=== PATIENT | female | born 1955 | race Caucasian/White ===

== ENCOUNTER 2022-12-17 08:27 | Inpatient (IN) | payer MEDICARE, OTHER ==
[~2022-12-17] VITALS: Ht 179.3 cm; Wt 73.0 kg
[2022-12-17 09:21] LABS: Nucleated Red Blood Cells % 0.4 %; Red Cell Distribution Width 17.9 % (11.8-14.3)
[2022-12-17 09:23] LABS: Basophils # (auto) 0.1 10 ^3/uL (0-0.2); Basophils % (auto) 0.9 % (0.0-2.0); Eosinophils # (auto) 0.2 10 ^3/uL (0-0.8); Eosinophils % (auto) 2.5 % (0.0-7.0); Hematocrit 43.8 % (36.0-46.0); Hemoglobin 14.5 g/dL (12.2-16.2); Lymphocytes # (auto) 1.7 10 ^3/uL (0.4-5.4); Lymphocytes % (auto) 19.9 % (10.0-50.0); Mean Corpuscular Hemoglobin 28.7 pg (28.0-32.0); Monocytes # (auto) 0.5 10 ^3/uL (0-1.3); Monocytes % (auto) 6.4 % (0.0-12.0); Neutrophils % (auto) 70.3 % (37.0-80.0); Red Blood Cells 5.03 10^6/uL (4.0-5.20); White Blood Cell 8.5 10^3/uL (4.4-10.8)
[2022-12-17 10:18] LABS: Albumin 3.2 g/dL (3.4-5.0); BUN/Creatinine Ratio 14.3; Calcium 9.3 mg/dL (8.5-10.1); Potassium 4.9 mmol/L (3.5-5.1)
[2022-12-17 10:18] LABS: Urine Bacteria FEW /hpf (None Seen); Urine Blood Negative /uL (Negative); Urine Hyaline Cast FEW /lpf (0 - 2); Urine Mucus FEW (None Seen); Urine Specific Gravity 1.017 (1.001-1.035); Urine WBC 34 /hpf (0 - 5)
[2022-12-17 10:21] LABS: Bilirubin, Total 0.6 mg/dL (0.2-1.0)
[2022-12-17] MEDS ORDERED: cefTRIAXone 1GM/50ML D5W 50 ML IV ONE (12:15)
[2022-12-17] MEDS ORDERED: AZITHROMYCIN 500MG/ 250ML 250 ML IV ONE (12:15)
[2022-12-17] MEDS ORDERED: IOHEXOL 350 MG/ML 100ML IJ ONE (15:57)
[2022-12-18] MEDS ORDERED: ACETAMINOPHEN 325 MG TAB PO PRN (01:15)
[2022-12-18] MEDS ORDERED: ONDANSETRON HCL 4 MG/2 ML VIAL IV PRN (01:15)
[2022-12-18] MEDS ORDERED: TEMAZEPAM 15 MG CAP PO PRN (01:15)
[2022-12-18] MEDS ORDERED: ALBUTEROL SULF 2.5 MG/0.5ML(0.5%) NEB SOLN NEB PRN (01:15)
[2022-12-18 01:30] VITALS: BP 106/59
[2022-12-18] MEDS ORDERED: AZITHROMYCIN 500MG/ 250ML 250 ML IV SCH (10:00)
[2022-12-18] MEDS: cefTRIAXone 1GM/50ML D5W 50 ML IV SCH (10:02)
[2022-12-18] MEDS: PANTOPRAZOLE 40 MG TAB PO SCH (10:53)
[2022-12-18] MEDS: ENOXAPARIN SOD 40 MG/0.4 ML SYRINGE SC SCH (10:53)
[2022-12-18] MEDS ORDERED: diphenhdrAMINE HCL 50 MG/1 ML VL IV PRN (14:15)
[2022-12-18 16:42] VITALS: BP 121/57
[2022-12-18 17:22] VITALS: BP 121/57
[2022-12-18] MEDS: DOXYCYCLINE 100 MG TAB/CAP PO SCH (21:24)
[2022-12-18 22:00] VITALS: BP 139/67
[2022-12-19 05:08] VITALS: BP 102/61
[2022-12-19 06:05] LABS: Basophils # (auto) 0.1 10 ^3/uL (0-0.2); Eosinophils # (auto) 0.2 10 ^3/uL (0-0.8); Eosinophils % (auto) 3.3 % (0.0-7.0); Hematocrit 38.3 % (36.0-46.0); Hemoglobin 12.8 g/dL (12.2-16.2); Lymphocytes # (auto) 1.4 10 ^3/uL (0.4-5.4); Lymphocytes % (auto) 22.7 % (10.0-50.0); Mean Corpuscular Hemoglobin 28.4 pg (28.0-32.0); Mean Corpuscular Hgb Conc. 33.4 g/dL (32.0-36.0); Mean Corpuscular Volume 85.2 fL (80.0-100.0); Monocytes # (auto) 0.6 10 ^3/uL (0-1.3); Monocytes % (auto) 10.3 % (0.0-12.0); Neutrophils # (auto) 3.8 10 ^3/uL (1.6-8.6); Neutrophils % (auto) 62.7 % (37.0-80.0); Nucleated Red Blood Cells % 0.1 %; Red Blood Cells 4.49 10^6/uL (4.0-5.20); Red Cell Distribution Width 17.5 % (11.8-14.3); White Blood Cell 6.1 10^3/uL (4.4-10.8)
[2022-12-19 06:08] LABS: BUN/Creatinine Ratio 14.8; Calcium 8.9 mg/dL (8.5-10.1); Potassium 4.1 mmol/L (3.5-5.1)
[2022-12-19 08:00] VITALS: BP 100/55
[2022-12-19 09:00] VITALS: BP 100/55
[2022-12-19] MEDS: cefTRIAXone 1GM/50ML D5W 50 ML IV SCH (09:24)
[2022-12-19] MEDS: ENOXAPARIN SOD 40 MG/0.4 ML SYRINGE SC SCH (10:12)
[2022-12-19] MEDS: PANTOPRAZOLE 40 MG TAB PO SCH (10:12)
[2022-12-19] MEDS: DOXYCYCLINE 100 MG TAB/CAP PO SCH ×2 (10:12→21:28)
[2022-12-19 13:12] VITALS: BP 109/52
[2022-12-19 17:11] VITALS: BP 113/65
[2022-12-19 22:00] VITALS: BP 96/51
[2022-12-20 05:00] VITALS: BP 108/64
[2022-12-20 09:00] VITALS: BP 108/55
[2022-12-20] MEDS: cefTRIAXone 1GM/50ML D5W 50 ML IV SCH (09:18)
== END 2022-12-20 09:50 | disposition home health service (06) | DRG 189 ==
LOC: ER 08:27 → OVERFLOW 12-18 01:11 → CENTRAL 12-18 15:52
PROVIDERS: ADMIT Nurse Practitioner; ATTEND Internal Medicine
DX: J96.01 Acute respiratory failure with hypoxia (principal); J18.9 Pneumonia, unspecified organism; N39.0 Urinary tract infection, site not specified; Z20.822 Contact with and (suspected) exposure to COVID-19; Z96.651 Presence of right artificial knee joint; Z85.3 Personal history of malignant neoplasm of breast
CPT/HCPCS: 36415; 71045; 71275; 80048; 80053; 81001; 83880; 84484; 85025; 85379; 87040; 87086; 87426; 87804; 93005; 93970; G0378; J0696